=== PATIENT | male | born 1960 | race Two or more races ===

== ENCOUNTER 2018-09-05 13:30 | Emergency (ER) | payer OTHER ==
[~2018-09-05] VITALS: Ht 180.3 cm; Wt 104.3 kg
[2018-09-05 13:52] VITALS: BP 131/81
[2018-09-05] MEDS ORDERED: KETOROLAC TROMETH 60MG/2ML VIAL IM ONE (14:00)
== END 2018-09-05 15:02 | disposition home or self-care (01) ==
LOC: ER 13:32
DX: M24.9 Joint derangement, unspecified (principal); M19.011 Primary osteoarthritis, right shoulder; Z88.6 Allergy status to analgesic agent
CPT/HCPCS: 73030; 96372; 99283; J1885

== ENCOUNTER 2019-01-23 19:32 | Emergency (ER) | payer MEDICAID, OTHER ==
[~2019-01-23] VITALS: Ht 180.3 cm; Wt 104.3 kg
[2019-01-23 22:56] LABS: Basophils # (auto) 0.1 uL; Basophils % (auto) 1.3 % (0.0-2.0); Eosinophils # (auto) 0.2 uL; Eosinophils % (auto) 2.4 % (0.0-7.0); Hematocrit 46.4 % (41.0-53.0); Hemoglobin 15.9 g/dL (13.5-17.5); Lymphocytes # (auto) 2.7 uL; Lymphocytes % (auto) 27.7 % (10.0-50.0); Mean Corpuscular Hemoglobin 31.4 pg (28.0-32.0); Mean Corpuscular Hgb Conc. 34.3 g/dL (32.0-36.0); Mean Corpuscular Volume 91.5 fL (80.0-100.0); Monocytes % (auto) 10.6 % (0.0-12.0); Neutrophils # (auto) 5.6 uL; Nucleated Red Blood Cells % 0.1 %; Platelet Count (auto) 212 10^3/uL (140-450); Red Blood Cells 5.07 10^6/uL (4.5-5.90); Red Cell Distribution Width 13.8 % (11.8-14.3); White Blood Cell 9.7 10^3/uL (4.4-10.8)
[2019-01-23 23:05] LABS: INR 0.99 (0.9-1.15)
[2019-01-23 23:09] LABS: Alanine Aminotransferase 28 U/L (16-61); Albumin 3.5 g/dL (3.4-5.0); Anion Gap 7 (5-15); Blood Urea Nitrogen 16 mg/dL (7-18); Calcium 8.2 mg/dL (8.5-10.1); Carbon Dioxide 24 mmol/L (21-32); Chloride 112 mmol/L (98-107); Glucose 89 mg/dL (74-106); Potassium 3.7 mmol/L (3.5-5.1); Sodium 143 mmol/L (136-145)
[2019-01-23 23:14] LABS: Alkaline Phosphatase 109 U/L (45-117); Aspartate Aminotransferase 17 U/L (15-37); BUN/Creatinine Ratio 18.6; Bilirubin, Total 0.5 mg/dL (0.2-1.0); GFR African American 117 mL/min; GFR Non-African American 97 mL/min
[2019-01-23] MEDS ORDERED: IOHEXOL 350 MG/ML 100ML IJ ONE (23:46)
[2019-01-24 04:16] VITALS: BP 132/78
== END 2019-01-24 04:23 | disposition home or self-care (01) ==
LOC: ER 19:44
DX: S16.1XXA Strain of muscle, fascia and tendon at neck level, initial encounter (principal); S20.212A Contusion of left front wall of thorax, initial encounter; M79.642 Pain in left hand; R51 Headache; Z88.8 Allergy status to other drugs, medicaments and biological substances; V49.88XA Car occupant (driver) (passenger) injured in other specified transport accidents, initial encounter; Y93.89 Activity, other specified; Y99.8 Other external cause status; Y92.89 Other specified places as the place of occurrence of the external cause
CPT/HCPCS: 36415; 70450; 70460; 70491; 71045; 71260; 72125; 73140; 74177; 80053; 83880; 84484; 85025; 85610; 85730; 93005; 99284; Q9967

== ENCOUNTER → 2022-04-23 | Outpatient (CLI) | payer OTHER, MEDICAID ==
[2022-04-23 07:55] LABS: Basophils # (auto) 0.1 10 ^3/uL (0-0.2); Basophils % (auto) 0.8 % (0.0-2.0); Eosinophils # (auto) 0.3 10 ^3/uL (0-0.8); Eosinophils % (auto) 4.8 % (0.0-7.0); Hemoglobin 14.1 g/dL (13.5-17.5); Lymphocytes # (auto) 1.3 10 ^3/uL (0.4-5.4); Lymphocytes % (auto) 17.9 % (10.0-50.0); Mean Corpuscular Hemoglobin 29.6 pg (28.0-32.0); Mean Corpuscular Hgb Conc. 33.5 g/dL (32.0-36.0); Mean Corpuscular Volume 88.3 fL (80.0-100.0); Monocytes # (auto) 0.7 10 ^3/uL (0-1.3); Monocytes % (auto) 9.4 % (0.0-12.0); Neutrophils # (auto) 4.8 10 ^3/uL (1.6-8.6); Neutrophils % (auto) 67.1 % (37.0-80.0); Nucleated Red Blood Cells % 0.2 %; Red Blood Cells 4.75 10^6/uL (4.5-5.90); Red Cell Distribution Width 13.7 % (11.8-14.3); White Blood Cell 7.2 10^3/uL (4.4-10.8)
[2022-04-23 08:18] LABS: Urine Amorphous Crystal FEW /hpf (None Seen); Urine Bacteria NONE SEEN /hpf (None Seen); Urine Blood Negative /uL (Negative); Urine Mucus FEW (None Seen); Urine Specific Gravity 1.031 (1.001-1.035); Urine WBC <1 /hpf (0 - 3)
[2022-04-23 08:27] LABS: Albumin 3.5 g/dL (3.4-5.0)
[2022-04-23 08:34] LABS: BUN/Creatinine Ratio 21.7; Bilirubin, Total 0.7 mg/dL (0.2-1.0); Calcium 8.5 mg/dL (8.5-10.1); Total Protein 6.6 g/dL (6.4-8.2)
== END | disposition home or self-care (01) ==
LOC: LAB 07:02
PROVIDERS: ATTEND Internal Medicine
DX: Z00.00 Encounter for general adult medical examination without abnormal findings (principal); Z12.11 Encounter for screening for malignant neoplasm of colon; E11.9 Type 2 diabetes mellitus without complications; I10 Essential (primary) hypertension
CPT/HCPCS: 36415; 80053; 80061; 81001; 82043; 83036; 84153; 84443; 85025

== ENCOUNTER → 2022-05-01 | Outpatient (CLI) | payer OTHER, MEDICAID | END | disposition home or self-care (01) | LOC: LAB 13:56 | PROVIDERS: ATTEND Internal Medicine | DX: Z00.00 Encounter for general adult medical examination without abnormal findings (principal); Z12.11 Encounter for screening for malignant neoplasm of colon; E11.9 Type 2 diabetes mellitus without complications; I10 Essential (primary) hypertension | CPT/HCPCS: 82270 ==

== ENCOUNTER → 2022-10-31 | Outpatient (CLI) | payer OTHER, MEDICAID | END | disposition home or self-care (01) | LOC: LAB 09:25 | PROVIDERS: ATTEND Internal Medicine | DX: M25.519 Pain in unspecified shoulder (principal) | CPT/HCPCS: 36415; 82550 ==

== ENCOUNTER 2023-02-15 13:34 | Emergency (ER) | payer OTHER, MEDICAID ==
[~2023-02-15] VITALS: Ht 180.3 cm; Wt 120.7 kg
[2023-02-15] MEDS ORDERED: CEPH500C PO (16:01)
[2023-02-15 16:26] VITALS: BP 147/96
== END 2023-02-15 16:29 | disposition home or self-care (01) ==
LOC: ER 13:34
DX: E11.9 Type 2 diabetes mellitus without complications (principal); I10 Essential (primary) hypertension; Z48.01 Encounter for change or removal of surgical wound dressing; Z88.6 Allergy status to analgesic agent

== ENCOUNTER 2024-09-21 08:37 | Inpatient (IN) | payer OTHER, MEDICAID ==
[~2024-09-21] VITALS: Ht 180.3 cm; Wt 102.2 kg
[~2024-09-21 08:37] MED LIST: CEPH500C PO
[2024-09-21 09:38] LABS: Basophils # (auto) 0.1 10 ^3/uL (0-0.2); Basophils % (auto) 0.8 % (0.0-2.0); Eosinophils # (auto) 0.2 10 ^3/uL (0-0.8); Eosinophils % (auto) 2.5 % (0.0-7.0); Hematocrit 47.3 % (41.0-53.0); Hemoglobin 16.2 g/dL (13.5-17.5); Lymphocytes % (auto) 14.3 % (10.0-50.0); Mean Corpuscular Hemoglobin 31.3 pg (28.0-32.0); Mean Corpuscular Hgb Conc. 34.2 g/dL (32.0-36.0); Mean Corpuscular Volume 91.6 fL (80.0-100.0); Monocytes # (auto) 0.6 10 ^3/uL (0-1.3); Monocytes % (auto) 8.3 % (0.0-12.0); Neutrophils # (auto) 5.1 10 ^3/uL (1.6-8.6); Neutrophils % (auto) 74.1 % (37.0-80.0); Platelet Count (auto) 264 10^3/uL (140-450); Red Blood Cells 5.17 10^6/uL (4.5-5.90); Red Cell Distribution Width 13.9 % (11.8-14.3); White Blood Cell 6.9 10^3/uL (4.4-10.8)
[2024-09-21 09:55] LABS: Chloride 105 mmol/L (98-107); Potassium 4.6 mmol/L (3.5-5.1); Sodium 139 mmol/L (136-145)
[2024-09-21 09:56] LABS: Anion Gap 6 (5-15); Carbon Dioxide 28 mmol/L (20-31)
[2024-09-21 10:01] LABS: Blood Urea Nitrogen 19 mg/dL (9-23); Glucose 99 mg/dL (74-106)
[2024-09-21 10:02] LABS: Calcium 10.4 mg/dL (8.7-10.4)
[2024-09-21] MEDS: SODIUM CHLORIDE 0.9% 1,000 ML IV ONE (10:15)
[2024-09-21] MEDS: ONDANSETRON HCL 4 MG/2 ML VIAL IV ONE (10:40)
[2024-09-21] MEDS: MORPHINE SULFATE 4 MG/ML SYR/VIAL IV ONE (10:41)
--- NOTE | 2024-09-21 10:47 | DVH ---
INDICATION: worsening back pain, hx of cancer COMPARISON: none TECHNIQUE: 4 views of the lumbar spine were obtained. FINDINGS: The lumbar vertebral alignment is normal. The intervertebral disc spaces are well-maintained. No significant facet arthropathy is noted. No acute fracture, vertebral compression deformity or aggressive osseous lesions. The paravertebral soft tissues are grossly unremarkable. IMPRESSION: No Acute fracture.
--- NOTE | 2024-09-21 11:02 | ED.PDOC ---
Back pain HPI HPI Comments 63 year old male accompanied by son presents to the ED with chief complaint of back pain. Patient reports that he has been experiencing left lower back pain that radiates down his left leg for the past 3 months with associated SOB, worse today, prompting him to come to the ED. Patient relays that he has history of brain cancer and was in the hospital for approximately 20 days. Patient denies any numbness, weakness, dizziness, chest pain, or N/V. Chief Complaint: Back Pain Time Seen by MD: 10:56 Primary Care Provider: UNKNOWN Reviewed Notes: Nurses Notes, Medications, Allergies Allergies: Coded Allergies: Aspirin (Verified Allergy, Unknown, 09/05/18) Home Meds Active Scripts Cephalexin Monohydrate (Cephalexin) 500 Mg Cap, 1 CAP PO QID, #40 CAP Prov:EVIN AMBRIZ 02/15/23 Information Source: Patient, Relative (Son) Mode of Arrival: Wheelchair Timing: Days Duration: Since onset Location of Back pain: (L) Lumbar Radiates to: Posterior: (L) Thigh Severity: Moderate Prehospital treatment: None Quality: Sharp Onset: Spontaneous History of: None Modifying Factors: Nothing Past Medical History PAST MEDICAL HISTORY: Cancer (Brain), DM, HTN Surgical History (Other): Prostate Family History Family History: Reviewed,noncontributory to illness Social History Smoker: Non-Smoker Alcohol: Denies ETOH Use Drugs: Denies Drug Use Lives In: Home Constitutional: denies: chills, diaphoresis, fatigue, fever, malaise, sweats, weakness, others EENTM: denies: blurred vision, double vision, ear bleeding, ear discharge, ear drainage, ear pain, ear ringing, eye pain, eye redness, hearing loss, mouth pain , mouth swelling, nasal discharge, nose bleeding, nose congestion, nose pain, photophobia, tearing, throat pain, throat swelling, voice changes, others Respiratory: reports: shortness of breath; denies: cough, hemoptysis, orthopnea, SOB at rest, SOB with excertion, stridor, wheezing, others Cardiovascular: denies: chest pain, dizzy spells, diaphoresis, Dyspnea on exertion, edema, irregular heart beat, left arm pain, lightheadedness, palpitations, PND, syncope, others Gastrointestinal: denies: abdomen distended, abdominal pain, blood streaked bowels, constipated, diarrhea, dysphagia, difficulty swallowing, hematemesis, melena, nausea, poor appetite, poor fluid intake, rectal bleeding, rectal pain, vomiting, others Genitourinary: denies: burning, dysuria, flank pain, frequency, hematuria, incontinence, penile discharge, penile sore, pain, testicle pain, testicle swelling, urgency, others Neurological: denies: dizziness, fainting, headache, left sided numbness, left sided weakness, numbness, paresthesia, pre-existing deficit, right sided numbness, right sided weakness, seizure, speech problems, tingling, tremors, weakness, others Musculoskeletal: reports: back pain; denies: gout, joint pain, joint swelling, muscle pain, muscle stiffness, neck pain, others Integumetry: denies: bruises, change in color, change in hair/nails, dryness, laceration, lesions, lumps, rash, wounds, others Allergic/Immunocompromised: denies: Difficulty Healing, Frequent Infections, Hives, Itching, others Hematologic/Lymphatic: denies: anemia, blood clots, easy bleeding, easy bruising, swollen glands, others Endocrine: denies: excessive hunger, excessive sweating, excessive thirst, excessive urination, flushing, intolerance to cold, intolerance to heat, unexplained weight gain, unexplained weight loss, others Psychiatric: denies: anxiety, bipolar disorder, depression, hopeless, panic disorder, schizophrenia, sleepless, suicidal, others All Other Systems: Reviewed and Negative Physical Exam General Appearance: No Apparent Distress, Normal HEENT: Normal ENT Inspection, PERRL/EOMI Neck: Full Range of Motion, Non-Tender, Normal, Normal Inspection Respiratory: Chest Non-Tender, Lungs Clear, No Accessory Muscle Use, No Respiratory Distress, Normal Breath Sounds Cardiovascular: No Edema, No JVD, No Murmur, No Gallop, Normal Peripheral Pulses, Regular Rate/Rhythm Breast Exam: Deferred Gastrointestinal: No Organomegaly, Non Tender, No Pulsatile Mass, Normal Bowel Sounds, Soft Genitalia: Deferred Pelvic: Deferred Rectal: Deferred Extremities: No calf tenderness, Normal capillary refill, Normal inspection, Normal range of motion, Non-tender, No pedal edema Musculoskeletal : Extremity Location: Back Apperance: Normal, Other (Lumbar tenderness) Neurologic: Alert, mobile equipment servicer II-XII nml as Tested, No Motor Deficits, Normal Affect, Normal Mood, No Sensory Deficits Cerebellar Function: Normal Reflexes: Normal Skin: Dry, Normal Color, Warm Lymphatic: No Adenopathy Was a procedure done? Was a procedure done?: No Back Pain Differential Dx Differential Diagnosis: Other (Muscle strain, worsening malignancy) X-Ray, Labs, Meds, VS Vital Signs Date Time Temp Pulse Resp B/P (MAP) Pulse Ox O2 Delivery O2 Flow Rate FiO2 09/21/24 10:41 76 16 133/86 09/21/24 10:40 98.0 76 18 133/86 (102) 98 98.0 09/21/24 10:19 97.1 73 18 127/83 (98) 95 97.1 09/21/24 08:49 98.6 79 18 145/83 (103) 96 09/21/24 08:48 Room Air 0 Lab Test 09/21/24 09:23 Range/Units White Blood Count 6.9 4.4-10.8 10^3/uL Red Blood Count 5.17 4.5-5.90 10^6/uL Hemoglobin 16.2 13.5-17.5 g/dL Hematocrit 47.3 41.0-53.0 % Mean Corpuscular Volume 91.6 80.0-100.0 fL Mean Corpuscular Hemoglobin 31.3 28.0-32.0 pg Mean Corpuscular Hemoglobin Concent 34.2 32.0-36.0 g/dL Red Cell Distribution Width 13.9 11.8-14.3 % Platelet Count 264 140-450 10^3/uL Mean Platelet Volume 7.6 6.9-10.8 fL Neutrophils (%) (Auto) 74.1 37.0-80.0 % Lymphocytes (%) (Auto) 14.3 10.0-50.0 % Monocytes (%) (Auto) 8.3 0.0-12.0 % Eosinophils (%) (Auto) 2.5 0.0-7.0 % Basophils (%) (Auto) 0.8 0.0-2.0 % Neutrophils # (Auto) 5.1 1.6-8.6 10 ^3/uL Lymphocytes # (Auto) 1.0 0.4-5.4 10 ^3/uL Monocytes # (Auto) 0.6 0-1.3 10 ^3/uL Eosinophils # (Auto) 0.2 0-0.8 10 ^3/uL Basophils # (Auto) 0.1 0-0.2 10 ^3/uL Nucleated Red Blood Cells 0.0 % Sodium Level 139 136-145 mmol/L Potassium Level 4.6 3.5-5.1 mmol/L Chloride Level 105 98-107 mmol/L Carbon Dioxide Level 28 20-31 mmol/L Anion Gap 6 5-15 Blood Urea Nitrogen 19 9-23 mg/dL Creatinine 0.95 0.700-1.30 mg/dL Glomerular Filtration Rate Calc 90 >90 mL/min BUN/Creatinine Ratio 20.0 10.0-20.0 Serum Glucose 99 74-106 mg/dL Calcium Level 10.4 8.7-10.4 mg/dL Current Medications Medications (Trade) Dose Ordered Sig/Kathi Route Start Time Stop Time Status Last Admin Sodium Chloride 1,000 ml @ 1,000 mls/hr Q1H ONCE IV 09/21/24 09:00 09/21/24 09:59 DC 09/21/24 10:15 Morphine Sulfate 4 mg ONCE ONCE IV 09/21/24 09:00 09/21/24 09:01 DC 09/21/24 10:41 Ondansetron HCl (Zofran) 4 mg ONCE ONCE IV 09/21/24 09:00 09/21/24 09:01 DC 09/21/24 10:40 Time of 1ST Reevaluation: 11:56 Reevaluation 1ST: Unchanged Patient Education/Counseling: Diagnosis, Treatment Family Education/Counseling: Diagnosis, Treatment Additional Information I reviewed the following notes from patient's past medical encounters: 02/15/23 for wound recheck The following tests were ordered, and results were reviewed by me: CBC, BMP, Lumbar Spine XR I reviewed and agreed with the following test results read by other providers: Lumbar Spine XR Additional Information was gathered from interviewing the following independent historians: Son I discussed treatment and results with medical personnel and son. Departure 1 Departure Time of Disposition: 11:46 (Patient with metastatic cancer and intractable back pain. Workup so far is benign for acute process however due to intractable pain we will admit patient for further workup and expert consultation.) Impression: Primary Impression: Metastatic cancer Qualified Codes: C79.9 - Secondary malignant neoplasm of unspecified site Additional Impression: Intractable low back pain Disposition: 09 ADMITTED INPATIENT Admit to: Med Surg Condition: Serious Critical Care Note Critical Care Time?: No Stability Stability form required: No Heart Score Heart Score: Heart Score Response (Comments) Value History N/A 0 EKG N/A 0 Age N/A 0 Risk Factors N/A 0 Troponin N/A 0 Total 0 I personally scribed for AMARI LAWSON MD ([email or web address]) on 09/21/24 at 11:02. Electronically submitted by Sanjay Washington ([email or web address]). AMARI LAWSON MD Sep 21, 2024 11:02
[2024-09-21] MEDS ORDERED: DOCUSATE SOD 100 MG CAP PO PRN (16:00)
[2024-09-21] MEDS ORDERED: DEXTROSE (50%) 50ML SYRG IV PRN (16:00)
[2024-09-21] MEDS ORDERED: MORPHINE SULFATE INJ 2 MG/ml SYRG IV PRN (16:45)
[2024-09-21] MEDS ORDERED: NITROGLYCERIN 0.4 MG SL TAB SL PRN (16:45)
--- NOTE | 2024-09-21 16:48 | DVHHP2 ---
History of Present Illness Reason for Visit: Intractable low back pain History of Present Illness The patient is a 63-year-old male with past medical history of brain cancer, DM, and hypertension who presented to [facility] ED with complaint of back pain. Patient reports he has been experiencing lower back pain that radiates down to his left leg for the past 3 months, associated shortness of breaths, getting worse today that prompted this visit. Patient reports he was hospitalized for a proximally 20 days for brain cancer. Patient was seen and evaluated in the ED, laboratory data shows WBC 6.9, platelets 264, sodium 139, potassium 4.6, BUN 19, creatinine 0.95, GFR 90, glucose 99, calcium 10.4. Lumbar spine x-ray show no acute fracture. Patient was given IV morphine sulfate 4 mg x 1, please see medication orders section in the computer. On my assessment, patient denied chest pain, no headache, no dizziness, no blurry vision, no diaphoresis, no shortness of breath, no nausea, no vomiting, no fever, no chills. Patient was admitted for further evaluation and medical management. Past Medical History Cancer (Brain), DM, HTN Past Surgical History Prostate surgery Family History Reviewed, noncontributory to the management of this case. Past Social History The patient lives at home, denies smoking, alcohol or illicit drugs abuse. Review of Systems Constitutional: No: Fever, Chills, Sweats, Weakness, Malaise, Other Eyes: No: Pain, Vision change, Conjunctivae inflammation, Eyelid inflammation, Other, Redness ENT: No: Ear pain, Ear discharge, Nose pain, Nose discharge, Nose congestion, Mouth pain, Mouth swelling, Throat pain, Throat swelling, Other Respiratory: No: Cough, Dry, Shortness of breath, SOB with excertion, Wheezing, Hemoptysis, Pleuritic Pain, Sputum, Wheezing, Other Cardiovascular: No: Chest Pain, Palpitations, Orthopnea, Paroxysmal Noc. Dyspnea, Edema, Lt Headedness, Other Gastrointestinal: No: Nausea, Vomiting, Abdominal Pain, Diarrhea, Constipation, Melena, Hematochezia, Other Genitourinary: No Dysuria, No Frequency, No Incontinence, No Hematuria, No Retention, No Other Musculoskeletal: back pain; No: other, neck pain, shoulder pain, arm pain, hand pain, leg pain, foot pain Skin: No: Rash, Lesions, Jaundice, Bruising, Other Neurological: No: Weakness, Numbness, Incoordination, Change in speech, Confusion, Seizures, Other Allergies: Coded Allergies: Aspirin (Verified Allergy, Unknown, 09/05/18) Medications Current Medications Medications Dose Ordered Sig/Kathi Route Start Time Stop Time Status Last Admin Dose Admin Famotidine 20 mg DAILY IV 09/22/24 10:00 Atorvastatin Calcium 10 mg HS PO 09/21/24 22:00 Cholecalciferol 1,000 unit DAILY PO 09/22/24 10:00 Diagnostic Test (Pha) 1 strip ACHS 09/21/24 17:00 Insulin Human Regular ACHS SC 09/21/24 17:00 Dextrose 50 ml UD PRN IV 09/21/24 16:00 Sodium Chloride 10 ml Q8HR IV 09/21/24 22:00 Acetaminophen/ Hydrocodone Bitart 1 tab Q4HP PRN PO 09/21/24 16:00 Ondansetron HCl 4 mg Q4HP PRN IV 09/21/24 16:00 Docusate Sodium 100 mg BIDPRN PRN PO 09/21/24 16:00 Acetaminophen 650 mg Q6HP PRN PO 09/21/24 16:00 Morphine Sulfate 2 mg Q4HPRN PRN IV 09/21/24 16:00 Exam Vital Signs Vital Signs Date Time Temp Pulse Resp B/P (MAP) Pulse Ox O2 Delivery O2 Flow Rate FiO2 09/21/24 11:11 80 16 130/76 09/21/24 10:40 98.0 98 98.0 09/21/24 08:48 Room Air 0 General Appearance: Alert, Oriented X3, Cooperative, No acute distress HEENT: Atraumatic, PERRLA, EOMI, Mucous membr. moist/pink Respiratory: Clear to auscultation, Normal air movement Cardiovascular: Regular rate, Normal S1, Normal S2, No murmurs Abdominal: Normal bowel sounds, Soft, No tenderness, No hepatospenomegaly, No masses Extremities: No clubbing, No cyanosis, No edema, Normal pulses, Other (Lower back tenderness) Skin: No rashes, No breakdown, No significant lesion Neuro: Normal gait, Normal speech, Strength at 5/5 X4 ext, Normal tone, Sensation intact, Cranial nerves 3-12 NL, Reflexes 2+ Psych/Mental Status: Mental status NL, Mood NL Labs/Xrays Labs Test 09/21/24 09:23 Range/Units White Blood Count 6.9 4.4-10.8 10^3/uL Red Blood Count 5.17 4.5-5.90 10^6/uL Hemoglobin 16.2 13.5-17.5 g/dL Hematocrit 47.3 41.0-53.0 % Mean Corpuscular Volume 91.6 80.0-100.0 fL Mean Corpuscular Hemoglobin 31.3 28.0-32.0 pg Mean Corpuscular Hemoglobin Concent 34.2 32.0-36.0 g/dL Red Cell Distribution Width 13.9 11.8-14.3 % Platelet Count 264 140-450 10^3/uL Mean Platelet Volume 7.6 6.9-10.8 fL Neutrophils (%) (Auto) 74.1 37.0-80.0 % Lymphocytes (%) (Auto) 14.3 10.0-50.0 % Monocytes (%) (Auto) 8.3 0.0-12.0 % Eosinophils (%) (Auto) 2.5 0.0-7.0 % Basophils (%) (Auto) 0.8 0.0-2.0 % Neutrophils # (Auto) 5.1 1.6-8.6 10 ^3/uL Lymphocytes # (Auto) 1.0 0.4-5.4 10 ^3/uL Monocytes # (Auto) 0.6 0-1.3 10 ^3/uL Eosinophils # (Auto) 0.2 0-0.8 10 ^3/uL Basophils # (Auto) 0.1 0-0.2 10 ^3/uL Nucleated Red Blood Cells 0.0 % Sodium Level 139 136-145 mmol/L Potassium Level 4.6 3.5-5.1 mmol/L Chloride Level 105 98-107 mmol/L Carbon Dioxide Level 28 20-31 mmol/L Anion Gap 6 5-15 Blood Urea Nitrogen 19 9-23 mg/dL Creatinine 0.95 0.700-1.30 mg/dL Glomerular Filtration Rate Calc 90 >90 mL/min BUN/Creatinine Ratio 20.0 10.0-20.0 Serum Glucose 99 74-106 mg/dL Calcium Level 10.4 8.7-10.4 mg/dL PATIENT: HAFSA CRABTREE ACCT: [id number] UNIT: [id number] : 1960 LOC: ER ROOM / BED: / AGE / SEX: 63 / M ADM STATUS: REG ER SERVICE ORDERING PHYSICIAN: AMARI LAWSON MD PROCEDURE(s): LUMB2 - LUMBAR SPINE 3 VIEW REASON: worsening back pain, hx of cancer ORDER NUMBER(s): [id number], ACCESSION NUMBER(s): [id number] INDICATION: worsening back pain, hx of cancer COMPARISON: none TECHNIQUE: 4 views of the lumbar spine were obtained. FINDINGS: The lumbar vertebral alignment is normal. The intervertebral disc spaces are well-maintained. No significant facet arthropathy is noted. No acute fracture, vertebral compression deformity or aggressive osseous le sions. The paravertebral soft tissues are grossly unremarkable. IMPRESSION: No Acute fracture. Assessment/Plan Assessment/Plan Intractable low back pain Metastatic cancer Secondary malignant neoplasm of unspecified site Plan 1. Admit to Med-Surg unit 2. Breathing treatment 3. Pain control management 4. Management of fluids and electrolytes 5. Consultation for hospitalist 6. Diagnostic tests lumbar spine x-ray 7. DVT prophylaxis on SCDs 8. Repeat labs CBC, CMP in a.m. 9. Continue with current medical management 10. Treatment plan discussed with patient and RN. Patient verbalized understa nding. Plan discussed with: Patient, Other (RN) My Orders Orders - HANG CHAMPION DNP Procedure Category Date Status Time Famotidine Injection PHA 09/22/24 In Process (Pepcid Injection) 10:00 Atorvastatin (Lipitor) PHA 09/21/24 In Process 22:00 Cholecalciferol PHA 09/22/24 In Process Tablet (Vitamin D3 10:00 Consistent DIET 09/21/24 Transmitted Carb(Ccho)Diabetes Dinner Glucose Blood PHA 09/21/24 In Process (Accu-Chek Comfort 17:00 Insulin R (Human) PHA 09/21/24 In Process (Insulin R) 17:00 Dextrose 50% Syringe PHA 09/21/24 In Process 16:00 Allergies REBEL 09/21/24 In Process 15:54 Code Status CODE 09/21/24 Transmitted 15:54 Sodium Chloride Lock PHA 09/21/24 In Process (Saline Lock Ns) 22:00 Oxygen Per Hour RT 09/21/24 Transmitted 15:54 Hydrocodone-Acet PHA 09/21/24 In Process 5/325mg Tab ([place] 16:00 Ondansetron Hcl PHA 09/21/24 In Process (Zofran) 16:00 Docusate Sodium PHA 09/21/24 In Process Capsule (Colace 16:00 Complete Blood Count LAB 09/22/24 Verified 04:00 Comprehensive LAB 09/22/24 Verified Metabolic Panel 04:00 Condition: Serious REBEL 09/21/24 In Process 15:54 Acetaminophen Tablet PHA 09/21/24 In Process (Tylenol Tablet) 16:00 Bedrest With Bathroom REBEL 09/21/24 In Process Privileg 15:54 Morphine Sulfate PHA 09/21/24 In Process Injection 16:00 Sequential REBEL 09/21/24 In Process Compression Device Problem List: (1) Intractable low back pain (2) Metastatic cancer (3) Secondary malignant neoplasm of unspecified site Date of Service: Sep 21, 2024 Billing Provider: HANG CHAMPION DNP Common Visit Codes: [id number] INP/OBS CARE (HIGH) HANG CHAMPION DNP Sep 21, 2024 16:48
[2024-09-21] MEDS: ACCU-CHEK COMFORT CURVE STRIP VI SCH (17:00)
[2024-09-21] MEDS: InsuLIN REG 1unit/0.01ml Soln (100units/ml) SC SCH (17:00)
[2024-09-21] MEDS: SODIUM CHLOR 0.9% PF (SALINE LOCK) 10ML VIAL/SYR IV SCH (22:02)
[2024-09-21] MEDS: ATORVASTATIN 20 MG TAB PO SCH (22:29)
[2024-09-21 22:40] VITALS: O2SAT 98
[2024-09-21 23:11] VITALS: BP 136/89; PULSE 83; RESP 14; TEMP 97.2; O2SAT 95
[2024-09-21] MEDS ORDERED: OMEP1CAP70 (23:32)
[2024-09-21] MEDS ORDERED: SENN-105 (23:32)
[2024-09-21] MEDS ORDERED: ATOR20TA50 (23:32)
[2024-09-21] MEDS ORDERED: [UNRECOGNIZED DRUG - CODE] (23:32)
[2024-09-21] MEDS ORDERED: HYDR12.55 (23:32)
[2024-09-21] MEDS ORDERED: CHOL500023 (23:32)
[2024-09-21] MEDS ORDERED: ACET-6 (23:32)
[2024-09-21] MEDS ORDERED: FLUO-470 (23:32)
[2024-09-21] MEDS ORDERED: DOCU-265 (23:32)
[2024-09-21] MEDS ORDERED: METF-372 (23:32)
[2024-09-21] MEDS ORDERED: LORA-1123 (23:32)
[2024-09-21] MEDS ORDERED: DICL1GEL73 (23:32)
[2024-09-21] MEDS: HYDROcodone-ACET 5/325MG TAB PO PRN (23:48)
[2024-09-22 05:00] VITALS: BP 145/87; PULSE 81; RESP 12; TEMP 98; O2SAT 98
[2024-09-22] MEDS: ACETAMINOPHEN 325 MG TAB PO PRN (05:17)
[2024-09-22 07:26] LABS: Basophils # (auto) 0 10 ^3/uL (0-0.2); Basophils % (auto) 0.8 % (0.0-2.0); Eosinophils # (auto) 0.1 10 ^3/uL (0-0.8); Eosinophils % (auto) 2.3 % (0.0-7.0); Hematocrit 43.7 % (41.0-53.0); Hemoglobin 14.8 g/dL (13.5-17.5); Mean Corpuscular Hemoglobin 30.8 pg (28.0-32.0); Mean Corpuscular Hgb Conc. 33.8 g/dL (32.0-36.0); Mean Corpuscular Volume 91.2 fL (80.0-100.0); Monocytes # (auto) 0.7 10 ^3/uL (0-1.3); Monocytes % (auto) 12.2 % (0.0-12.0); Neutrophils # (auto) 4.2 10 ^3/uL (1.6-8.6); Neutrophils % (auto) 67.7 % (37.0-80.0); Nucleated Red Blood Cells % 0.1 %; Platelet Count (auto) 250 10^3/uL (140-450); Red Blood Cells 4.79 10^6/uL (4.5-5.90); Red Cell Distribution Width 14.1 % (11.8-14.3); White Blood Cell 6.1 10^3/uL (4.4-10.8)
[2024-09-22 07:37] LABS: Alanine Aminotransferase 27 U/L (7-40); Alkaline Phosphatase 66 U/L (46-116); Anion Gap 6 (5-15); BUN/Creatinine Ratio 21.3 (10.0-20.0); Blood Urea Nitrogen 19 mg/dL (9-23); Calcium 9.8 mg/dL (8.7-10.4); Carbon Dioxide 29 mmol/L (20-31); Chloride 105 mmol/L (98-107); Glucose 98 mg/dL (74-106); Sodium 140 mmol/L (136-145)
[2024-09-22 07:38] LABS: Albumin 4.4 g/dL (3.2-4.8); Aspartate Aminotransferase 19 U/L (13-40); Total Protein 6.4 g/dL (5.7-8.2)
[2024-09-22 08:00] VITALS: PULSE 66; RESP 20; O2SAT 96
[2024-09-22 09:00] VITALS: BP 122/77; PULSE 66; RESP 20; TEMP 98.5; O2SAT 96
[2024-09-22] MEDS: FAMOTIDINE (10MG/ML) 2ML VL IV SCH (09:55)
[2024-09-22] MEDS: CHOLECALCIFEROL (VITD3) 1,000UNIT=25mCg TAB PO SCH (09:56)
[2024-09-22] MEDS: ONDANSETRON HCL 4 MG/2 ML VIAL IV PRN (10:13)
--- NOTE | 2024-09-22 11:29 | DVHPN2 ---
Subjective 63 year old male with h/o brain ca 1 year ago on po chemo, came with low back pain x 3 months with left leg radiculopathy Changes from previous H/P or p: Changes Eyes: No Pain, No Vision change, No Conjunctivae inflammation, No Eyelid inflammation, No Other, No Redness ENT: No Ear pain, No Ear discharge, No Nose pain, No Nose discharge, No Nose congestion, No Mouth pain, No Mouth swelling, No Throat pain, No Throat swelling, No Other Cardiovascular: No Chest Pain, No Palpitations, No Orthopnea, No Paroxysmal Noc. Dyspnea, No Edema, No Lt Headedness, No Other Respiratory: No Cough, No Dry, No Shortness of breath, No SOB with excertion, No Wheezing, No Hemoptysis, No Pleuritic Pain, No Sputum, No Other Gastrointestinal: No Nausea, No Vomiting, No Abdominal Pain, No Diarrhea, No Constipation, No Melena, No Hematochezia, No Other Genitourinary: No Dysuria, No Frequency, No Incontinence, No Hematuria, No Retention, No Other Musculoskeletal: No other, No neck pain, No shoulder pain, No arm pain; back pain; No hand pain, No leg pain, No foot pain Skin: No Rash, No Lesions, No Jaundice, No Bruising, No Other Objective Vitals Vital Signs Date Time Temp Pulse Resp B/P (MAP) Pulse Ox O2 Delivery O2 Flow Rate FiO2 09/22/24 09:00 98.5 66 20 122/77 (92) 96 98.5 09/21/24 23:11 Room Air* 0 21 Intake/Output Intake and Output 09/22/24 07:00 Intake Total 145 ml Output Total 0 ml Balance 145 ml Intake Oral 145 ml Output Urine Total 0 ml Stool Total 0 ml General Appearance: Alert, Oriented X3, Cooperative Lungs: Clear to auscultation Cardiovascular: Regular rate, Normal S1, Normal S2 Abdomen: Normal bowel sounds, Soft, No tenderness Extremities: No edema Medications Current Medications Medications Dose Ordered Sig/Kathi Route Start Time Stop Time Status Last Admin Dose Admin Famotidine 20 mg DAILY IV 09/22/24 10:00 09/22/24 09:55 20 MG Atorvastatin Calcium 10 mg HS PO 09/21/24 22:00 09/21/24 22:29 10 MG Cholecalciferol 1,000 unit DAILY PO 09/22/24 10:00 09/22/24 09:56 1,000 UNIT Diagnostic Test (Pha) 1 strip ACHS 09/21/24 17:00 09/22/24 06:34 1 STRIP Insulin Human Regular ACHS SC 09/21/24 17:00 Dextrose 50 ml UD PRN IV 09/21/24 16:00 Sodium Chloride 10 ml Q8HR IV 09/21/24 22:00 09/22/24 06:34 10 ML Acetaminophen/ Hydrocodone Bitart 1 tab Q4HP PRN PO 09/21/24 16:00 09/21/24 23:48 1 TAB Ondansetron HCl 4 mg Q4HP PRN IV 09/21/24 16:00 09/22/24 10:13 4 MG Docusate Sodium 100 mg BIDPRN PRN PO 09/21/24 16:00 Acetaminophen 650 mg Q6HP PRN PO 09/21/24 16:00 09/22/24 05:17 650 MG Morphine Sulfate 2 mg Q4HPRN PRN IV 09/21/24 16:00 Nitroglycerin 0.4 mg Q5MINP PRN SL 09/21/24 16:45 Morphine Sulfate 2 mg Q30M PRN IV 09/21/24 16:45 Laboratory Results Laboratory Tests 09/22/24 06:46 Chemistry Test 09/22/24 06:46 Albumin 4.4 g/dL (3.2-4.8) Calcium Level 9.8 mg/dL (8.7-10.4) Total Protein 6.4 g/dL (5.7-8.2) LFT Test 09/22/24 06:46 Alanine Aminotransferase (ALT) 27 U/L (7-40) Alkaline Phosphatase 66 U/L (46-116) Aspartate Amino Transferase (AST) 19 U/L (13-40) Total Bilirubin 1.0 mg/dL (0.2-1.0) Assessment/Plan Assessment/Plan Intractable low back pain Left leg radiculopathy Brain CA on chemo HTN DM2 PLAN: Order CT L-Spine CT head Neurology consult Full code Advanced directives discussed x 15 minutes Plan discussed with: Patient Date of Service: Sep 22, 2024 Billing Provider: DUY STAPLETON MD Common Visit Codes: [id number] INP/OBS CARE(HIGH) Secondary Visit Codes: 79915-[id number] CARE PLAN 30 MINUTES DUY STAPLETON MD Sep 22, 2024 11:29
--- NOTE | 2024-09-22 12:37 | DVH ---
EXAM: CT HEAD WITHOUT CONTRAST HISTORY: brain ca COMPARISON: None TECHNIQUE: Axial images of the head were obtained and reformatted in coronal and sagittal planes. All CT scans at this medical facility are performed using dose modulation techniques as appropriate t o a performed exam including the following: Automated exposure control was utilized; adjustment of th e MA and/or KV according to patient size; and use of iterative reconstruction technique. CT Dose: CTDI volume is 38 mGy. Dose-length product is 2774 mGy*cm FINDINGS: There is a jj hole in the anterolateral right frontal calvarium. Underlying the calvarium there is a small cystic area measuring 1.4 cm. The adjacent brain parenchyma which appears heterogeneous with small calcifications. A mass is not excluded on the current noncontrast CT. There is no evidence of m ass effect or midline shift. There is no evidence of intracranial hemorrhage. There are patchy hypode nse areas in the supratentorial white matter which May relate to chronic small-vessel ischemic change s. There is no hydrocephalus or extra-axial fluid collection. Note is made of cavum septum pellucidum and vergae. There is a 1.2 cm right choroidal fissure cyst. The visualized paranasal sinuses and mastoid air cells are clear. The calvarium is intact. IMPRESSION: 1. [place] hole in the anterolateral right frontal calvarium with underlying small cystic area measuring 1.4 cm. The adjacent surrounding brain parenchyma appears heterogeneous with small calcifications. A mass is not excluded on the current noncontrast CT. Further evaluation with MRI brain with contrast is recommended. 2. 1.2 cm right choroidal fissure cysts. HS:Y
[2024-09-22 13:00] VITALS: BP 135/86; PULSE 66; RESP 20; TEMP 98; O2SAT 96
--- NOTE | 2024-09-22 15:06 | DVH ---
Procedure: CT LS SPINE WO CONTRAST 09/22/2024 11:47 AM Indication: low back pain Comparison Study: None. Technique: Axial images were obtained and reformatted in coronal and sagittal planes. All CT scans at this medical facility are performed using dose modulation techniques as appropriate t o a performed exam including the following: Automated exposure control was utilized; adjustment of th e MA and/or KV according to patient size; and use of iterative reconstruction technique. CT Dose: CTDI volume is 68, 38 mGy. Dose-length product is 2774 mGy*cm FINDINGS: Bones: The vertebra are normal in height. Normal alignment noted. Disc spaces are maintained. Multil evel degenerative disc disease and posterior facet arthropathy of the lumbar spine noted, most promin ent at L3-L4 with a prominent posterior disc bulge, moderate right and mild left posterior facet arth ropathy and resultant moderate central canal stenosis and moderate bilateral neural foramina stenosis . The sacroiliac joints are maintained. Soft tissues: Paraspinal soft tissues are within normal limits. Other: None. IMPRESSION: 1. Straightening of normal lordosis that could be positional, reflect muscle spasm or pain. Correlate clinically. 2. No acute osseous abnormality of the lumbar spine. 3. Multilevel degenerative disc disease and posterior facet arthropathy.
[2024-09-22 17:00] VITALS: BP 134/88; PULSE 64; RESP 18; TEMP 98; O2SAT 98
[2024-09-22 21:00] VITALS: BP 112/62; PULSE 78; RESP 17; TEMP 97.7; O2SAT 95
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
[2024-09-22] MEDS ORDERED: LORazepam 2MG/ML-1ML VIAL IV PRN (22:00)
[2024-09-22] MEDS ORDERED: LORazepam 2MG/ML-1ML VIAL IV ONE (22:00)
[2024-09-23] VITALS (8 sets, daily range): BP systolic 113–136; BP diastolic 62–80; PULSE 58–84; RESP 17–19; TEMP 97.2–98.3; O2SAT 94–100
[2024-09-23] MEDS ORDERED: GADOTERATE MEG 10 MMOL/20ml INJ (0.5MMOL/ml) IV ONE (09:16)
--- NOTE | 2024-09-23 09:46 | DVH ---
MRI BRAIN WITHOUT CONTRAST CLINICAL HISTORY: BRAIN CANCER TECHNIQUE: Multiplanar, multisequence MR images of the brain without intravenous contrast. Comparison: CT head 09/22/2024 FINDINGS: Redemonstrated are postsurgical changes in the right anterolateral frontal lobe with a 1.4 cm cystic area likely representing resection cavity. There is mild surrounding hemosiderin staining and a few p unctate foci of blooming artifact corresponding to calcifications. There are fairly confluence surrou nding hyperintense T2/FLAIR signal changes which May relate to edema/gliosis or nonenhancing tumor co mponent. There is a small blush of enhancement superior and posterior to the resection cavity (series 10, image 95). There is no restricted diffusion. There is no acute hemorrhage. There is no mass effect or midline sh ift. There is no hydrocephalus or extra-axial fluid collection. The visualized intracranial vasculat ure demonstrates appropriate flow-voids. The sagittal midline structures appear unremarkable. The window and siding craftsman niocervical junction is within normal limits. The calvarium demonstrates normal marrow signal. The pa ranasal sinuses and mastoid air cells are clear. IMPRESSION: 1. Redemonstrated are postsurgical changes in the right anterolateral frontal lobe with likely 1.4 cm cystic resection cavity. There is mild surrounding hemosiderin staining and a few punctate foci of b looming artifact corresponding to calcifications. 2. There are fairly confluence surrounding hyperintense T2/FLAIR signal changes which May relate to e john / gliosis or nonenhancing tumor component. There is no significant mass effect. 3. There is a small blush of enhancement superior and posterior to the resection cavity. Small residu al enhancing tumor is not excluded. Comparison with any available prior MR studies is recommended. If none available, a follow-up study in 3-4 months is recommended. HS:Y
--- NOTE | 2024-09-23 10:49 | DVHPN2 ---
Progress Note - Dictate Date Seen: Sep 23, 2024 Medical Necessity Reason Pt with a Central, PICC or Fol: No Subjective Mr. Yanes is a 63 years old right-handed gentleman with a history of hypertension, diabetes, brain cancer, BPH, the patient was came to the [facility] on 09/21/2024 with a chief company of back pain, but patient was has a history of brain tumor. I have seen and examined the patient, I have spent time discussing with him about my impression, the imaging study, including the sitter reports in 2019, all bilingual staff helped me The back pain and left-sided pain is intense The case was discussed with Dr. Harrison CBC, 09/22/2024: Unremarkable CMP, 09/22/2024: Unremarkable CT head, 01/23/2019: 1. 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 Consider CTA of the head/neck or noncontrast MRI of the brain as clinically warranted. 2. No acute intracranial hemorrhage or extra-axial fluid collection. 3. Mild generalized cerebral volume loss CT head, 09/22/24: 1. [place] hole in the anterolateral right frontal calvarium with underlying small cystic area measuring 1.4 cm. The adjacent surrounding brain parenchyma appears heterogeneous with small calcifications. A mass is not excluded on the current noncontrast CT. Further evaluation with MRI brain with contrast is recommended. 2. 1.2 cm right choroidal fissure cysts CT lumbar spine, 09/22/2024: 1. Straightening of normal lordosis that could be positional, reflect muscle spasm or pain. Correlate clinically. 2. No acute osseous abnormality of the lumbar spine. 3. Multilevel degenerative disc disease and posterior facet arthropathy MR head, 09/23/2024: 1. Redemonstrated are postsurgical changes in the right anterolateral frontal lobe with likely 1.4 cm cystic resection cavity. There is mild surrounding hemosiderin staining and a few punctate foci of blooming artifact corresponding to calcifications. 2. There are fairly confluence surrounding hyperintense T2/FLAIR signal changes which May relate to edema / gliosis or nonenhancing tumor component. There is no significant mass effect. 3. There is a small blush of enhancement superior and posterior to the resection cavity. Small residual enhancing tumor is not excluded. Comparison with any available prior MR studies is recommended. If none available, a follow-up study in 3-4 months is recommended vital signs Vital Sign Date Time Temp Pulse Resp B/P (MAP) Pulse Ox O2 Delivery O2 Flow Rate FiO2 09/23/24 08:30 97.9 84 17 126/74 (91) 100 97.9 09/23/24 08:00 Room Air* 0 21 Total Intake and Output 09/22/24 09/22/24 09/23/24 15:00 23:00 07:00 Intake Total 600 ml 1560 ml 560 ml Output Total 1200 ml 600 ml Balance 600 ml 360 ml -40 ml medications Current Medications Medications Dose Ordered Sig/Kathi Route Start Time Stop Time Status Last Admin Dose Admin Famotidine 20 mg DAILY IV 09/22/24 10:00 09/23/24 09:20 20 MG Atorvastatin Calcium 10 mg HS PO 09/21/24 22:00 09/22/24 21:12 10 MG Cholecalciferol 1,000 unit DAILY PO 09/22/24 10:00 09/23/24 09:20 1,000 UNIT Diagnostic Test (Pha) 1 strip ACHS 09/21/24 17:00 09/23/24 06:44 1 STRIP Insulin Human Regular ACHS SC 09/21/24 17:00 Dextrose 50 ml UD PRN IV 09/21/24 16:00 Sodium Chloride 10 ml Q8HR IV 09/21/24 22:00 09/23/24 06:44 10 ML Acetaminophen/ Hydrocodone Bitart 1 tab Q4HP PRN PO 09/21/24 16:00 09/23/24 08:26 1 TAB Ondansetron HCl 4 mg Q4HP PRN IV 09/21/24 16:00 09/22/24 10:13 4 MG Docusate Sodium 100 mg BIDPRN PRN PO 09/21/24 16:00 Acetaminophen 650 mg Q6HP PRN PO 09/21/24 16:00 09/22/24 05:17 650 MG Morphine Sulfate 2 mg Q4HPRN PRN IV 09/21/24 16:00 Nitroglycerin 0.4 mg Q5MINP PRN SL 09/21/24 16:45 Morphine Sulfate 2 mg Q30M PRN IV 09/21/24 16:45 Lorazepam 1 mg Q5MINP PRN IV 09/22/24 22:00 objective General: the patient is well developed and nourished. No acute distress. MUSCULOSKELETAL EXAM: Tenderness to palpation in the lumbar spine MENTAL STATUS: Awake and alert. Oriented to person, place, time, poor historian SPEECH, LANGUAGE, HIGHER CORTICAL FUNCTION: no aphasia or dysathria. CRANIAL NERVES: Intact visual rodriguez to confrontation. Pupils are equal, round and reactive. EOMs full and conjugate. No nystagmus. Facial sensation intact in all three divisions bilaterally. Mandibular strength intact. Facial muscles symmetrical and strength intact. SENSATION: Sensation to touch and pinprick is normal. MOTOR: Normal tone in the upper and lower extremity. Normal muscle bulk. No fasciculations. No abnormal movements or posturing. Muscle strength of the major groups in the extremities is 5/5. REFLEXES: Deep tendon reflexes normal and symmetrical. No pathological reflexes. CEREBELLAR/COORDINATION: Finger to nose is normal bilaterally. GAIT/STATION: deferred laboratory and microbiology Laboratory Tests 09/22/24 06:46 Test 09/22/24 06:46 Range/Units Serum Glucose 98 74-106 mg/dL Problem List Brain tumor, likely glioma The possible acute/subacute stroke evident in the CT scan obtained on 01/23/2019 could be glioma Episodic event with speech difficulty, jaw locking This could be partial seizure secondary to the brain tumor Low back pain, left thigh pain ? Radiculopathy ? Degenerative disc disease Assessment/Plan Monitoring Supportive treatment Telemetry EEG MRI lumbar spine Current pain management Up to chair Physical therapy More recommendation per clinical course This medical document was created using an electronic medical record system with [employer] dictation system. Although this document has been carefully reviewed, there may still be some phonetic and typographical errors. These areas are purely typographical due to imperfections of the software programs, and do not reflect any compromise in the patient's medical care Prognosis poor Plan discussed with: Patient, Other Total Time (mins): 40 LUZ WILLIAMSON MD Sep 23, 2024 10:49
--- NOTE | 2024-09-23 11:22 | DVH ---
MRI LUMBAR SPINE CLINICAL HISTORY: back pain TECHNIQUE: Multi planar, multi sequence MR images of the lumbar spine without intravenous contrast. Comparison: CT lumbar spine 09/22/2024 FINDINGS: The conus terminates at an appropriate level and demonstrates normal caliber and signal. The vertebra l bodies demonstrate normal height and marrow signal. The lumbar spinal canal is congenitally small i n caliber with short lumbar pedicles. There is straightening of the lumbar lordosis. There is disc de siccation throughout with multilevel disc space narrowing, worst at L4-L5 and L5-S1. There is multile rad facet arthropathy. The paraspinal soft tissues appear within normal limits. At L1-L2 there is disc bulge indenting the ventral thecal sac without canal or significant foraminal stenosis. At L2-L3 there is diffuse disc bulge and mild facet arthropathy. There is indentation of the ventral thecal sac without significant canal stenosis. There is mild bilateral neural foraminal stenosis. At L3-L4 there is diffuse disc bulge and bilateral facet arthropathy. There is mild central canal yifan nosis with effacement of the lateral recesses. There is mild bilateral neural foraminal stenosis, [id number] [id number]. At L4-L5 there is posterior disc osteophyte complex and mild bilateral facet arthropathy. There is no significant central canal stenosis. There is moderate right and mild left neural foraminal stenosis. At L5-S1 there is posterior disc osteophyte complex and bilateral facet arthropathy, [id number] n-right. There is indentation of the ventral thecal sac without significant canal stenosis. There is moderate to severe bilateral neural foraminal stenosis. IMPRESSION: 1. Straightening of the lumbar spine with multilevel degenerative changes as described by roberto villarreal. There is mild spinal canal and bilateral neural foraminal stenosis at L3-L4. 2. Moderate to severe bilateral neural foraminal stenosis at L5-S1 3. 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 HS:Y
--- NOTE | 2024-09-23 14:10 | DVHPN2 ---
Subjective No change Complains of back pain and left leg pain Changes from previous H/P or p: Changes Eyes: No Pain, No Vision change, No Conjunctivae inflammation, No Eyelid inflammation, No Other, No Redness ENT: No Ear pain, No Ear discharge, No Nose pain, No Nose discharge, No Nose congestion, No Mouth pain, No Mouth swelling, No Throat pain, No Throat swelling, No Other Cardiovascular: No Chest Pain, No Palpitations, No Orthopnea, No Paroxysmal Noc. Dyspnea, No Edema, No Lt Headedness, No Other Respiratory: No Cough, No Dry, No Shortness of breath, No SOB with excertion, No Wheezing, No Hemoptysis, No Pleuritic Pain, No Sputum, No Other Gastrointestinal: No Nausea, No Vomiting, No Abdominal Pain, No Diarrhea, No Constipation, No Melena, No Hematochezia, No Other Genitourinary: No Dysuria, No Frequency, No Incontinence, No Hematuria, No Retention, No Other Musculoskeletal: No other, No neck pain, No shoulder pain, No arm pain; back pain; No hand pain, No leg pain, No foot pain Skin: No Rash, No Lesions, No Jaundice, No Bruising, No Other Objective Vitals Vital Signs Date Time Temp Pulse Resp B/P (MAP) Pulse Ox O2 Delivery O2 Flow Rate FiO2 09/23/24 12:29 98.1 65 18 136/80 (98) 97 98.1 09/23/24 08:00 Room Air* 0 21 Intake/Output Intake and Output 09/23/24 07:00 Intake Total 2720 ml Output Total 1800 ml Balance 920 ml Intake Oral 2720 ml Output Urine Total 1800 ml General Appearance: Alert, Oriented X3, Cooperative Lungs: Clear to auscultation Cardiovascular: Regular rate, Normal S1, Normal S2 Abdomen: Normal bowel sounds, Soft, No tenderness Extremities: No edema Medications Current Medications Medications Dose Ordered Sig/Kathi Route Start Time Stop Time Status Last Admin Dose Admin Famotidine 20 mg DAILY IV 09/22/24 10:00 09/23/24 09:20 20 MG Atorvastatin Calcium 10 mg HS PO 09/21/24 22:00 09/22/24 21:12 10 MG Cholecalciferol 1,000 unit DAILY PO 09/22/24 10:00 09/23/24 09:20 1,000 UNIT Diagnostic Test (Pha) 1 strip ACHS 09/21/24 17:00 09/23/24 11:32 1 STRIP Insulin Human Regular ACHS SC 09/21/24 17:00 Dextrose 50 ml UD PRN IV 09/21/24 16:00 Sodium Chloride 10 ml Q8HR IV 09/21/24 22:00 09/23/24 06:44 10 ML Acetaminophen/ Hydrocodone Bitart 1 tab Q4HP PRN PO 09/21/24 16:00 09/23/24 08:26 1 TAB Ondansetron HCl 4 mg Q4HP PRN IV 09/21/24 16:00 09/22/24 10:13 4 MG Docusate Sodium 100 mg BIDPRN PRN PO 09/21/24 16:00 Acetaminophen 650 mg Q6HP PRN PO 09/21/24 16:00 09/22/24 05:17 650 MG Morphine Sulfate 2 mg Q4HPRN PRN IV 09/21/24 16:00 Nitroglycerin 0.4 mg Q5MINP PRN SL 09/21/24 16:45 Morphine Sulfate 2 mg Q30M PRN IV 09/21/24 16:45 Lorazepam 1 mg Q5MINP PRN IV 09/22/24 22:00 Laboratory Results Laboratory Tests 09/22/24 06:46 Assessment/Plan Assessment/Plan Intractable low back pain Left leg radiculopathy Brain CA on chemo HTN DM2 PLAN: Order CT L-Spine CT head Neurology consult Full code Advanced directives discussed x 15 minutes 09/23/2024: MRI of the lumbar spine showed spinal canal and bilateral neural foraminal stenosis at the L3-L4 level with moderate to severe bilateral neural foraminal stenosis at the L5-S1 level Consult spinal surgery Neurology consult is on the case Plan discussed with: Patient My Orders Orders - DUY STAPLETON MD Procedure Category Date Status Time Lumbar Spine Wo MRI 09/23/24 Resulted Contrast 10:09 Consultdr. Tay CONS 09/23/24 Transmitted [place](Spine) 14:07 Date of Service: Sep 23, 2024 Billing Provider: DUY STAPLETON MD Common Visit Codes: [id number] INP/OBS CARE(HIGH) DUY STAPLETON MD Sep 23, 2024 14:10
[2024-09-24] VITALS (9 sets, daily range): BP systolic 101–134; BP diastolic 62–79; PULSE 61–75; RESP 17–19; TEMP 97–98.1; O2SAT 95–98
[2024-09-24] MEDS: MORPHINE SULFATE INJ 2 MG/ml SYRG IV PRN (09:07)
--- NOTE | 2024-09-24 10:21 | DVHPN2 ---
Progress Note - Dictate Date Seen: Sep 24, 2024 Medical Necessity Reason Pt with a Central, PICC or Fol: No Subjective Mr. Yanes is a 63 years old right-handed gentleman with a history of hypertension, diabetes, brain cancer, BPH, the patient was came to the [facility] on 09/21/2024 with a chief company of back pain, but patient was has a history of brain tumor. I have seen and examined the patient, I have discussed with his nurse, all bilingual staff helped me He reports the low back pain is less intense, but no changes in the pain in the anterior aspect of the left thigh He reports having pain she was in from the lumbar spine to the left side of the back, he was pain shooting from the left knee to the low back The case was discussed with Dr. Harrison CBC, 09/22/2024: Unremarkable CMP, 09/22/2024: Unremarkable CT head, 01/23/2019: 1. 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 Consider CTA of the head/neck or noncontrast MRI of the brain as clinically warranted. 2. No acute intracranial hemorrhage or extra-axial fluid collection. 3. Mild generalized cerebral volume loss CT head, 09/22/24: 1. Eric hole in the anterolateral right frontal calvarium with underlying small cystic area measuring 1.4 cm. The adjacent surrounding brain parenchyma appears heterogeneous with small calcifications. A mass is not excluded on the current noncontrast CT. Further evaluation with MRI brain with contrast is recommended. 2. 1.2 cm right choroidal fissure cysts CT lumbar spine, 09/22/2024: 1. Straightening of normal lordosis that could be positional, reflect muscle spasm or pain. Correlate clinically. 2. No acute osseous abnormality of the lumbar spine. 3. Multilevel degenerative disc disease and posterior facet arthropathy MR head, 09/23/2024: 1. Redemonstrated are postsurgical changes in the right anterolateral frontal lobe with likely 1.4 cm cystic resection cavity. There is mild surrounding hemosiderin staining and a few punctate foci of blooming artifact corresponding to calcifications. 2. There are fairly confluence surrounding hyperintense T2/FLAIR signal changes which May relate to edema / gliosis or nonenhancing tumor component. There is no significant mass effect. 3. There is a small blush of enhancement superior and posterior to the resection cavity. Small residual enhancing tumor is not excluded. Comparison with any available prior MR studies is recommended. If none available, a follow-up study in 3-4 months is recommended MRI lumbar spine, 09/23/2024: 1. Straightening of the lumbar spine with multilevel degenerative changes as described by levels above. There is mild spinal canal and bilateral neural foraminal stenosis at L3-L4. 2. Moderate to severe bilateral neural foraminal stenosis at L5-S1 3. 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 vital signs Vital Sign Date Time Temp Pulse Resp B/P (MAP) Pulse Ox O2 Delivery O2 Flow Rate FiO2 09/24/24 09:07 64 19 118/77 09/24/24 09:00 97.8 97 97.8 09/23/24 20:00 Room Air* 0 21 Total Intake and Output 09/23/24 09/23/24 09/24/24 15:00 23:00 07:00 Intake Total 820 ml 0 ml Output Total 800 ml Balance 20 ml 0 ml medications Current Medications Medications Dose Ordered Sig/Kathi Route Start Time Stop Time Status Last Admin Dose Admin Famotidine 20 mg DAILY IV 09/22/24 10:00 09/24/24 08:56 20 MG Atorvastatin Calcium 10 mg HS PO 09/21/24 22:00 09/23/24 21:47 10 MG Cholecalciferol 1,000 unit DAILY PO 09/22/24 10:00 09/24/24 08:56 1,000 UNIT Diagnostic Test (Pha) 1 strip ACHS 09/21/24 17:00 09/24/24 06:06 1 STRIP Insulin Human Regular ACHS SC 09/21/24 17:00 Dextrose 50 ml UD PRN IV 09/21/24 16:00 Sodium Chloride 10 ml Q8HR IV 09/21/24 22:00 09/24/24 06:06 10 ML Acetaminophen/ Hydrocodone Bitart 1 tab Q4HP PRN PO 09/21/24 16:00 09/23/24 20:15 1 TAB Ondansetron HCl 4 mg Q4HP PRN IV 09/21/24 16:00 09/22/24 10:13 4 MG Docusate Sodium 100 mg BIDPRN PRN PO 09/21/24 16:00 Acetaminophen 650 mg Q6HP PRN PO 09/21/24 16:00 09/22/24 05:17 650 MG Morphine Sulfate 2 mg Q4HPRN PRN IV 09/21/24 16:00 09/24/24 09:07 2 MG Nitroglycerin 0.4 mg Q5MINP PRN SL 09/21/24 16:45 Morphine Sulfate 2 mg Q30M PRN IV 09/21/24 16:45 Lorazepam 1 mg Q5MINP PRN IV 09/22/24 22:00 objective General: the patient is well developed and nourished. No acute distress. MUSCULOSKELETAL EXAM: Tenderness to palpation in the lumbar spine MENTAL STATUS: Awake and alert. Oriented to person, place, time, poor historian SPEECH, LANGUAGE, HIGHER CORTICAL FUNCTION: no aphasia or dysathria. CRANIAL NERVES: Intact visual rodriguez to confrontation. Pupils are equal, round and reactive. EOMs full and conjugate. No nystagmus. Facial sensation intact in all three divisions bilaterally. Mandibular strength intact. Facial muscles symmetrical and strength intact. SENSATION: Sensation to touch and pinprick is normal. MOTOR: Normal tone in the upper and lower extremity. Normal muscle bulk. No fasciculations. No abnormal movements or posturing. Muscle strength of the major groups in the extremities is 5/5, no leg drift. REFLEXES: Deep tendon reflexes normal and symmetrical. No pathological reflexes. CEREBELLAR/COORDINATION: Finger to nose is normal bilaterally. GAIT/STATION: deferred laboratory and microbiology Laboratory Tests 09/22/24 06:46 Test 09/22/24 06:46 Range/Units Serum Glucose 98 74-106 mg/dL Problem List Brain tumor, likely glioma The possible acute/subacute stroke evident in the CT scan obtained on 01/23/2019 could be glioma Episodic event with speech difficulty, jaw locking This could be partial seizure secondary to the brain tumor Low back pain, left thigh pain ? Radiculopathy ? Degenerative disc disease Assessment/Plan Monitoring Supportive treatment Telemetry EEG CT abdomen/pelvis for abnormal mass lesion Current pain management Up to chair Physical therapy More recommendation per clinical course This medical document was created using an electronic medical record system with [employer] system. Although this document has been carefully reviewed, there may still be some phonetic and typographical errors. These areas are purely typographical due to imperfections of the software programs, and do not reflect any compromise in the patient's medical care Prognosis poor Plan discussed with: Patient, Other Total Time (mins): 35 LUZ WILLIAMSON MD Sep 24, 2024 10:21
--- NOTE | 2024-09-24 10:49 | DVHPN2 ---
Subjective He says his back pain is better but his pain into the left leg is still going on MRI of the lumbar spine showed multilevel degenerative changes of the lumbar spine and moderate to severe bilateral neural foraminal stenosis at the L5-S1 level Changes from previous H/P or p: Changes Eyes: No Pain, No Vision change, No Conjunctivae inflammation, No Eyelid inflammation, No Other, No Redness ENT: No Ear pain, No Ear discharge, No Nose pain, No Nose discharge, No Nose congestion, No Mouth pain, No Mouth swelling, No Throat pain, No Throat swelling, No Other Cardiovascular: No Chest Pain, No Palpitations, No Orthopnea, No Paroxysmal Noc. Dyspnea, No Edema, No Lt Headedness, No Other Respiratory: No Cough, No Dry, No Shortness of breath, No SOB with excertion, No Wheezing, No Hemoptysis, No Pleuritic Pain, No Sputum, No Other Gastrointestinal: No Nausea, No Vomiting, No Abdominal Pain, No Diarrhea, No Constipation, No Melena, No Hematochezia, No Other Genitourinary: No Dysuria, No Frequency, No Incontinence, No Hematuria, No Retention, No Other Musculoskeletal: No other, No neck pain, No shoulder pain, No arm pain; back pain; No hand pain, No leg pain, No foot pain Skin: No Rash, No Lesions, No Jaundice, No Bruising, No Other Objective Vitals Vital Signs Date Time Temp Pulse Resp B/P (MAP) Pulse Ox O2 Delivery O2 Flow Rate FiO2 09/24/24 09:07 64 19 118/77 09/24/24 09:00 97.8 97 97.8 09/23/24 20:00 Room Air* 0 21 Intake/Output Intake and Output 09/24/24 07:00 Intake Total 820 ml Output Total 800 ml Balance 20 ml Intake Oral 820 ml Output Urine Total 800 ml # Voids 4 General Appearance: Alert, Oriented X3, Cooperative Lungs: Clear to auscultation Cardiovascular: Regular rate, Normal S1, Normal S2 Abdomen: Normal bowel sounds, Soft, No tenderness Extremities: No edema Medications Current Medications Medications Dose Ordered Sig/Kathi Route Start Time Stop Time Status Last Admin Dose Admin Famotidine 20 mg DAILY IV 09/22/24 10:00 09/24/24 08:56 20 MG Atorvastatin Calcium 10 mg HS PO 09/21/24 22:00 09/23/24 21:47 10 MG Cholecalciferol 1,000 unit DAILY PO 09/22/24 10:00 09/24/24 08:56 1,000 UNIT Diagnostic Test (Pha) 1 strip ACHS 09/21/24 17:00 09/24/24 06:06 1 STRIP Insulin Human Regular ACHS SC 09/21/24 17:00 Dextrose 50 ml UD PRN IV 09/21/24 16:00 Sodium Chloride 10 ml Q8HR IV 09/21/24 22:00 09/24/24 06:06 10 ML Acetaminophen/ Hydrocodone Bitart 1 tab Q4HP PRN PO 09/21/24 16:00 09/23/24 20:15 1 TAB Ondansetron HCl 4 mg Q4HP PRN IV 09/21/24 16:00 09/22/24 10:13 4 MG Docusate Sodium 100 mg BIDPRN PRN PO 09/21/24 16:00 Acetaminophen 650 mg Q6HP PRN PO 09/21/24 16:00 09/22/24 05:17 650 MG Morphine Sulfate 2 mg Q4HPRN PRN IV 09/21/24 16:00 09/24/24 09:07 2 MG Nitroglycerin 0.4 mg Q5MINP PRN SL 09/21/24 16:45 Morphine Sulfate 2 mg Q30M PRN IV 09/21/24 16:45 Lorazepam 1 mg Q5MINP PRN IV 09/22/24 22:00 Laboratory Results Laboratory Tests 09/22/24 06:46 Assessment/Plan Assessment/Plan Intractable low back pain Left leg radiculopathy Brain CA on chemo HTN DM2 PLAN: Order CT L-Spine CT head Neurology consult Full code Advanced directives discussed x 15 minutes 09/23/2024: MRI of the lumbar spine showed spinal canal and bilateral neural foraminal stenosis at the L3-L4 level with moderate to severe bilateral neural foraminal stenosis at the L5-S1 level Consult spinal surgery Neurology consult is on the case 09/24/2024: Spinal surgery is on Neurology recommended to do a CT scan of the abdomen and pelvis today Spinal stenosis and degenerative joint disease: Spinal surgery consult Pain management as needed Physical therapy Plan discussed with: Patient My Orders Orders - DUY STAPLETON MD Procedure Category Date Status Time ConsultdrChase Cross CONS 09/23/24 Transmitted [place](Spine) 14:07 Date of Service: Sep 24, 2024 Billing Provider: DUY STAPLETON MD Common Visit Codes: [id number] INP/OBS CARE(HIGH) DUY STAPLETON MD Sep 24, 2024 10:49
[2024-09-24] MEDS ORDERED: GASTROGRAFIN 30 ML SOL ONE (14:25)
[2024-09-24] MEDS ORDERED: IOHEXOL 300 MG/ML 100ML BOTTLE IJ ONE (16:19)
--- NOTE | 2024-09-24 17:02 | DVH ---
Exam: CT CT ABD PELVIS W CON-ORAL IV History: To rule out abdominal/pelvis mass evaluation Comparison Study: None available TECHNIQUE: A digital associate director qa image was obtained. During the uneventful, intravenous administration of c ontrast material, multislice data acquisition was obtained through the abdomen and pelvis. The data s et was subsequently reconstructed into axial images. Images reviewed on a wrist examination is an exa mination of axial and multiplanar reformations using a variety of window levels and settings. RADIATION DOSE: DLP 1328.97 mGy.cm; CTDI vol 22.54 mGy. Findings: Lungs: The lung bases are clear. Heart: No cardiomegaly or pericardial effusion. Liver: Unremarkable. Gallbladder: Unremarkable. Spleen: Unremarkable Pancreas: Unremarkable Adrenals: Unremarkable Kidneys: Unremarkable GI tract: Unremarkable : Prostatectomy. Unremarkable. Vasculature: Unremarkable Lymphadenopathy: Absent Peritoneum: No ascites. Penile implant with ruptured pelvic reservoir/bulb and adjacent fluid collect ion. Musculoskeletal: Mild multilevel degenerative changes of the thoracolumbar spine. Soft tissues: Small fat containing ventral hernias. Impression: 1. No acute abdominopelvic abnormalities. 2. Penile implant with ruptured pelvic reservoir/bulb and adjacent fluid collection.
--- NOTE | 2024-09-24 17:06 | DVHINCON2 ---
Consultation - Spinal Surgery Date Seen: Sep 24, 2024 Referring Physician Referring Physician Attending Doctor: Eldon Harrison MD Reason for Consultation Reason for Visit: Intractable low back pain History of Present Illness History of Present Illness History of Present Illness The patient is a 63-year-old male with past medical history of brain cancer, DM, and hypertension who presented to [facility] ED with complaint of back pain. Patient reports he has been experiencing lower back pain that radiates down to his left leg for the past 3 months, associated shortness of breaths, getting worse today that prompted this visit. Patient reports he was hospitalized for a proximally 20 days for brain cancer. Patient was seen and evaluated in the ED, laboratory data shows WBC 6.9, platelets 264, sodium 139, potassium 4.6, BUN 19, creatinine 0.95, GFR 90, glucose 99, calcium 10.4. Lumbar spine x-ray show no acute fracture. Patient was given IV morphine sulfate 4 mg x 1, please see medication orders section in the computer. On my assessment, patient denied chest pain, no headache, no dizziness, no blurry vision, no diaphoresis, no shortness of breath, no nausea, no vomiting, no fever, no chills. Patient was admitted for further evaluation and medical management. Spine surgery H and P housing inspectors provided via director of product design #[id number] video director of product design, patient is complaining of left leg pain has been going on and off for some time, is cramping in nature and will make it difficult for him to walk. Patient is currently in remission. Patient is complaining of a back pain that also goes on to his left leg cramping in nature. Past Medical/Surgical History Past Medical/Surgical History Past Medical History Cancer (Brain), DM, HTN Past Surgical History Prostate surgery Family and Social History Family and Social History Family History Reviewed, noncontributory to the management of this case. Past Social History The patient lives at home, denies smoking, alcohol or illicit drugs abuse Allergies and medications Allergies: Coded Allergies: Aspirin (Verified Allergy, Unknown, 09/05/18) Home Meds Active Scripts Cephalexin Monohydrate (Cephalexin) 500 Mg Cap, 1 CAP PO QID, #40 CAP Prov:EVIN AMBRIZ 02/15/23 Reported Medications Omeprazole (Omeprazole Dr) 20 Mg Cap, 1 DAILY 09/21/24 Atorvastatin Calcium (ATORVASTATIN CALCIUM) 20 Mg Tab, 1 DAILY 09/21/24 Fluoxetine HCl (Fluoxetine HCl) 20 Mg Cap, 1 DAILY 09/21/24 Temozolomide (TEMOZOLOMIDE) 180 Mg Cap 09/21/24 Lorazepam (Lorazepam) 1 Mg Tab, 1 09/21/24 Diclofenac Sodium (Topical) (Diclofenac Sodium) 1 % Gel 09/21/24 Acetaminophen (Acetaminophen Extra Stren) 500 Mg Tab 09/21/24 Cholecalciferol (VITAMIN D3) 5,000 Unit Tab, 1 DAILY 09/21/24 Hydrochlorothiazide (Hydrochlorothiazide) 12.5 Mg Tab, 1 DAILY 09/21/24 Docusate Sodium (Docusate Sodium) 100 Mg Cap 09/21/24 Senna (Senna) 8.6 Mg Tab, 2 DAILY 09/21/24 Metformin Hydrochloride (Metformin Hcl) 1,000 Mg Tab, 1 DAILY 09/21/24 Review of systems Review of Systems: HEENT:Normal, CVS:Normal, RESPIRATORY:Normal, GI:Normal, : Normal, MSK:Normal, NEURO:Normal Examination Vital signs Imaging: PROCEDURE(s): MSL - LUMBAR SPINE WO CONTRAST REASON: back pain ORDER NUMBER(s): [id number], ACCESSION NUMBER(s): [id number] MRI LUMBAR SPINE CLINICAL HISTORY: back pain TECHNIQUE: Multi planar, multi sequence MR images of the lumbar spine without intravenous contrast. Comparison: CT lumbar spine 09/22/2024 FINDINGS: The conus terminates at an appropriate level and demonstrates normal caliber and signal. The vertebral bodies demonstrate normal height and marrow signal. The lumbar spinal canal is congenitally small in caliber with short lumbar pedicles. There is straightening of the lumbar lordosis. There is disc desiccation throughout with multilevel disc space narrowing, worst at L4-L5 and L5-S1. There is multilevel facet arthropathy. The paraspinal soft tissues appear within normal limits. At L1-L2 there is disc bulge indenting the ventral thecal sac without canal or significant foraminal stenosis. At L2-L3 there is diffuse disc bulge and mild facet arthropathy. There is indentation of the ventral thecal sac without significant canal stenosis. There is mild bilateral neural foraminal stenosis. At L3-L4 there is diffuse disc bulge and bilateral facet arthropathy. There is mild central canal stenosis with effacement of the lateral recesses. There is mild bilateral neural foraminal stenosis, [id number]. At L4-L5 there is posterior disc osteophyte complex and mild bilateral facet arthropathy. There is no significant central canal stenosis. There is moderate right and mild left neural foraminal stenosis. At L5-S1 there is posterior disc osteophyte complex and bilateral facet arthr opathy, [id number]-right. There is indentation of the ventral thecal sac without significant canal stenosis. There is moderate to severe bilateral neural foraminal stenosis. IMPRESSION: 1. Straightening of the lumbar spine with multilevel degenerative changes as described by levels above. There is mild spinal canal and bilateral neural foraminal stenosis at L3-L4. 2. Moderate to severe bilateral neural foraminal stenosis at L5-S1 3. 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 PATIENT: HAFSA CRABTREE ACCT: [id number] UNIT: [id number] : 1960 LOC: [facility] ROOM / BED: [address] [place] [address] AGE / SEX: 63 / M ADM STATUS: ADM IN SERVICE 1121 ORDERING PHYSICIAN: ELDON HARRISON MD PROCEDURE(s): LS2CT - LS SPINE WO CONTRAST REASON: low back pain ORDER NUMBER(s): [id number], ACCESSION NUMBER(s): [id number] Procedure: CT LS SPINE WO CONTRAST 09/22/2024 11:47 AM Indication: low back pain Comparison Study: None. Technique: Axial images were obtained and reformatted in coronal and sagittal planes. All CT scans at this medical facility are performed using dose modulation tech niques as appropriate to a performed exam including the following: Automated exposure control was utilized; adjustment of the MA and/or KV according to patient size; and use of iterative reconstruction technique. CT Dose: CTDI volume is 68, 38 mGy. Dose-length product is 2774 mGy*cm FINDINGS: Bones: The vertebra are normal in height. Normal alignment noted. Disc spaces are maintained. Multilevel degenerative disc disease and posterior facet arthropathy of the lumbar spine noted, most prominent at L3-L4 with a prominent posterior disc bulge, moderate right and mild left posterior facet arthropathy and resultant moderate central canal stenosis and moderate bilateral neural foramina stenosis. The sacroiliac joints are maintained. Soft tissues: Paraspinal soft tissues are within normal limits. Other: None. IMPRESSION: 1. Straightening of normal lordosis that could be positional, reflect muscle spasm or pain. Correlate clinically. 2. No acute osseous abnormality of the lumbar spine. 3. Multilevel degenerative disc disease and posterior facet arthropathy. PROCEDURE(s): LUMB2 - LUMBAR SPINE 3 VIEW REASON: worsening back pain, hx of cancer ORDER NUMBER(s): [id number], ACCESSION NUMBER(s): [id number] INDICATION: worsening back pain, hx of cancer COMPARISON: none TECHNIQUE: 4 views of the lumbar spine were obtained. FINDINGS: The lumbar vertebral alignment is normal. The intervertebral disc spaces are well-maintained. No significant facet arthropathy is noted. No acute fracture, vertebral compression deformity or aggressive osseous lesions. The paravertebral soft tissues are grossly unremarkable. IMPRESSION: No Acute fracture. Vital Signs Date Time Temp Pulse Resp B/P (MAP) Pulse Ox O2 Delivery O2 Flow Rate FiO2 09/24/24 16:48 98.0 61 19 129/79 (96) 97 98.0 09/23/24 20:00 Room Air* 0 21 Laboratory Labs Test 09/24/24 11:51 09/22/24 06:46 Range/Units POC Glucose 102 70-106 mg/dl White Blood Count 6.1 4.4-10.8 10^3/uL Red Blood Count 4.79 4.5-5.90 10^6/uL Hemoglobin 14.8 13.5-17.5 g/dL Hematocrit 43.7 41.0-53.0 % Mean Corpuscular Volume 91.2 80.0-100.0 fL Mean Corpuscular Hemoglobin 30.8 28.0-32.0 pg Mean Corpuscular Hemoglobin Concent 33.8 32.0-36.0 g/dL Red Cell Distribution Width 14.1 11.8-14.3 % Platelet Count 250 140-450 10^3/uL Mean Platelet Volume 7.8 6.9-10.8 fL Neutrophils (%) (Auto) 67.7 37.0-80.0 % Lymphocytes (%) (Auto) 17.0 10.0-50.0 % Monocytes (%) (Auto) 12.2 H 0.0-12.0 % Eosinophils (%) (Auto) 2.3 0.0-7.0 % Basophils (%) (Auto) 0.8 0.0-2.0 % Neutrophils # (Auto) 4.2 1.6-8.6 10 ^3/uL Lymphocytes # (Auto) 1.0 0.4-5.4 10 ^3/uL Monocytes # (Auto) 0.7 0-1.3 10 ^3/uL Eosinophils # (Auto) 0.1 0-0.8 10 ^3/uL Basophils # (Auto) 0 0-0.2 10 ^3/uL Nucleated Red Blood Cells 0.1 % Sodium Level 140 136-145 mmol/L Potassium Level 4.0 3.5-5.1 mmol/L Chloride Level 105 98-107 mmol/L Carbon Dioxide Level 29 20-31 mmol/L Anion Gap 6 5-15 Blood Urea Nitrogen 19 9-23 mg/dL Creatinine 0.89 0.700-1.30 mg/dL Glomerular Filtration Rate Calc 96 >90 mL/min BUN/Creatinine Ratio 21.3 H 10.0-20.0 Serum Glucose 98 74-106 mg/dL Calcium Level 9.8 8.7-10.4 mg/dL Total Bilirubin 1.0 0.2-1.0 mg/dL Aspartate Amino Transferase (AST) 19 13-40 U/L Alanine Aminotransferase (ALT) 27 7-40 U/L Alkaline Phosphatase 66 46-116 U/L Total Protein 6.4 5.7-8.2 g/dL Albumin 4.4 3.2-4.8 g/dL Examination: GENERAL:Normal, HEENT:Normal, NECK:Normal, LUNGS:Normal, CVS:Normal, ABDOMEN:Normal, MSK:Abnormal (Bilateral upper extremities 5/5, left leg 4/5 right leg 5/5.), SKIN:Normal, NEURO:Normal (Patient is able to move all extremities sensation is present to all extremities. Patient does have some cramping that is intermittent to the left leg), :Normal Problem List/Assessment/Plan Problems: (1) Lumbar stenosis Assessment and Plan Patient has a congenitally narrow lumbar spine with stenosis, multilevel degenerative disc disease and severe neural foraminal stenosis L5-S1 < patient does not need emergent spine surgery at this time. He can be seen as an outpatient - as long as the patient is in remission from his metastatic brain cancer he is a surgical candidate. - outpatient follow up with Dr. Tay Noel - conservative management until appointment is scheduled. Pain medication and muscle relaxers, physical therapy - Call [phone] for a appointment [id number] [place] [address], [place] [phone] Recommendation of Solu-Medrol 80 mg IV one dose and then Q 8 hours for 24 hours total Call with questions Han Garcia [facility] Orthopaedic Spine Surgery nurse practitioner For Dr Katelyn Spear Patient was examined, chart reviewed, labs evaluated, and diagnostic studies and findings analyzed. Case was discussed with Dr. Tay Spear who formulated the plan of care. This medical document was created using an electronic medical record system with [email or web address] dictation system. Although this document has been carefully reviewed, there might still be some phonetic and typographical errors. These areas are purely typographical due to imperfections of the software programs, and do not reflect any compromise in the patient's medical care. Plan discussed with Plan discussed with: Patient, Other (Bakari GARCIA [id number]) NAVID GARCIA NP Sep 24, 2024 17:06
[2024-09-25 01:15] VITALS: BP 122/69; PULSE 72; RESP 19; TEMP 97.8; O2SAT 96
[2024-09-25 05:12] VITALS: BP 113/77; PULSE 67; RESP 16; TEMP 98; O2SAT 96
[2024-09-25 08:00] VITALS: PULSE 62; RESP 16; O2SAT 96
[2024-09-25 09:00] VITALS: BP 121/76; PULSE 62; RESP 16; TEMP 98.2; O2SAT 96
--- NOTE | 2024-09-25 11:39 | DVHDS2 ---
Discharge Summary Date of Admission Sep 21, 2024 at 16:36 Date of Discharge: Sep 25, 2024 Labs/Diagnostic Data: Laboratory Results Test 09/25/24 06:10 09/22/24 06:46 POC Glucose 105 mg/dl (70-106) White Blood Count 6.1 10^3/uL (4.4-10.8) Red Blood Count 4.79 10^6/uL (4.5-5.90) Hemoglobin 14.8 g/dL (13.5-17.5) Hematocrit 43.7 % (41.0-53.0) Mean Corpuscular Volume 91.2 fL (80.0-100.0) Mean Corpuscular Hemoglobin 30.8 pg (28.0-32.0) Mean Corpuscular Hemoglobin Concent 33.8 g/dL (32.0-36.0) Red Cell Distribution Width 14.1 % (11.8-14.3) Platelet Count 250 10^3/uL (140-450) Mean Platelet Volume 7.8 fL (6.9-10.8) Neutrophils (%) (Auto) 67.7 % (37.0-80.0) Lymphocytes (%) (Auto) 17.0 % (10.0-50.0) Monocytes (%) (Auto) 12.2 % (0.0-12.0) Eosinophils (%) (Auto) 2.3 % (0.0-7.0) Basophils (%) (Auto) 0.8 % (0.0-2.0) Neutrophils # (Auto) 4.2 10 ^3/uL (1.6-8.6) Lymphocytes # (Auto) 1.0 10 ^3/uL (0.4-5.4) Monocytes # (Auto) 0.7 10 ^3/uL (0-1.3) Eosinophils # (Auto) 0.1 10 ^3/uL (0-0.8) Basophils # (Auto) 0 10 ^3/uL (0-0.2) Nucleated Red Blood Cells 0.1 % Sodium Level 140 mmol/L (136-145) Potassium Level 4.0 mmol/L (3.5-5.1) Chloride Level 105 mmol/L (98-107) Carbon Dioxide Level 29 mmol/L (20-31) Anion Gap 6 (5-15) Blood Urea Nitrogen 19 mg/dL (9-23) Creatinine 0.89 mg/dL (0.700-1.30) Glomerular Filtration Rate Calc 96 mL/min (>90) BUN/Creatinine Ratio 21.3 (10.0-20.0) Serum Glucose 98 mg/dL (74-106) Calcium Level 9.8 mg/dL (8.7-10.4) Total Bilirubin 1.0 mg/dL (0.2-1.0) Aspartate Amino Transferase (AST) 19 U/L (13-40) Alanine Aminotransferase (ALT) 27 U/L (7-40) Alkaline Phosphatase 66 U/L (46-116) Total Protein 6.4 g/dL (5.7-8.2) Albumin 4.4 g/dL (3.2-4.8) Other Laboratory Tests 09/22/24 06:46 Brief Hx & Hospital Course: Final diagnoses: Intractable low back pain due to multilevel degenerative disc disease 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 Brain CA on chemo HTN DM2 63-year-old male who was admitted because of back pain radiating to his left leg, he has history of brain cancer in remission in the past Evaluation here with a CT scan and lumbar MRI showed congenital lumbar stenosis and radiculopathy from nerve entrapment Spinal surgery was consulted, they recommended conservative treatment for now with physical therapy and outpatient referral The patient was seen by therapy here and he is able to ambulate Neurology also saw the patient regarding his history of brain cancer, CT scan of the head showed prior surgery with no obvious mass or new lesions, also MRI of the brain was done which also showed old surgical changes, neurology recommended conservative treatment and outpatient follow up The patient is doing well and ambulating well and therefore he can be discharged home Continue same home medications Follow up with his primary care physician to get a referral to go to see spinal surgery as an outpatient for possible surgical intervention for his congenital spinal stenosis if he is still symptomatic Refer to physical therapy as an outpatient Condition at Discharge: Stable Final Diagnosis/Problems List Intractable low back pain due to multilevel degenerative disc disease 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 Patient was counseled about treatment plan, medications, possible side effects, patientverbalized understanding. All questions were answered to the best of my ability. 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
[2024-09-25 13:08] VITALS: BP 124/86; PULSE 72; RESP 16; TEMP 98.4; O2SAT 96
[2024-09-25 13:14] VITALS: BP 124/86; PULSE 72; RESP 16; TEMP 98.4; O2SAT 96
--- NOTE | 2024-09-25 23:17 | DVHEEG2 ---
Neurology EEG Procedural Note Procedural Note EXAM DATE: 09/23/2023 REFERRING DOCTOR: Dr. Williamson TECHNIQUE: Eighteen channels of EEG, 2 channels of EOG, and 1 channel of EKG were recorded using the [employer] 10/20 system. CLINICAL DATA: The patient was referred for an EEG evaluation for the evidence of seizure disorder. MEDICATIONS: See chart BACKGROUND ACTIVITY: While the patient was awake, the background activity consisted of well regulated 9-10 Hz rhythmic waveforms, symmetrically distributed over both posterior quadrants and was reactive to eye opening. ACTIVATION: Hyperventilation: Not done Photic Stimulation: Not done Sleep: Not seen IMPRESSION: This is a normal EEG. No focal, lateralized, or epileptiform features are noted. If clinically indicated to rule out a seizure disorder, recommend repeat EEG with sleep deprivation. The EKG channel showed a regular heart rate of 78/[place] [address] LUZ WILLIAMSON MD Sep 25, 2024 23:17
== END 2024-09-25 14:13 | disposition home health service (06) | DRG 552 ==
LOC: ER 08:37 → OVERFLOW 16:36 → EAST 16:37
PROVIDERS: ADMIT Nurse Practitioner Family; ATTEND Internal Medicine Geriatric Medicine
DX: M48.061 Spinal stenosis, lumbar region without neurogenic claudication (principal); C71.9 Malignant neoplasm of brain, unspecified; M48.07 Spinal stenosis, lumbosacral region; E11.9 Type 2 diabetes mellitus without complications; I10 Essential (primary) hypertension; N40.0 Benign prostatic hyperplasia without lower urinary tract symptoms; M51.16 Intervertebral disc disorders with radiculopathy, lumbar region; Z88.6 Allergy status to analgesic agent; Z85.841 Personal history of malignant neoplasm of brain; Z86.73 Personal history of transient ischemic attack (TIA), and cerebral infarction without residual deficits; Z79.4 Long term (current) use of insulin
CPT/HCPCS: 36415; 70450; 70553; 72100; 72131; 72148; 74177; 80048; 80053; 82962; 85025; 95819; 97110; 97116; 97163; G0378; J2405; J3490